=== PATIENT | female | born 1950 | race Caucasian/White ===

== ENCOUNTER 2023-06-02 06:28 | Day surgery (SDC) | payer OTHER, SELFPAY ==
--- NOTE | 2023-06-02 | PATH_ITS ---
[facility] Accession Number: [id number] No. of containers..02 Tissue . 01 Material submitted: . PART A: colon - CECAL POLYP PART B: colon - ASCENDING COLON POLYP . 01 Diagnosis: A- COLON, CECUM, POLYP BIOPSY: - Tubular adenoma --- B- COLON, ASCENDING, POLYP BIOPSY: - Tubular adenoma TXN 06/07/2023 1458 Local . 01 Electronically signed: . Tawfeellyn Finley MD, Pathologist NPI- [id number] . 01 Gross description: . Part A: CECAL POLYP: Received in formalin is 1 fragment(s) of hernandez, soft tissue measuring 0.4 x 0.2 x 0.2 cm submitted entirely in 1 cassette(s) Part B: ASCENDING COLON POLYP: Received in formalin is 1 fragment(s) of hernandez, soft tissue measuring 0.8 x 0.2 x 0.2 cm submitted entirely in 1 cassette(s) /AYSHA 06/03/2023 1859 Local . 01 Pathologist provided ICD-10: R19.5 . 01 CPT . 123646, [id number] Specimen Comment: A courtesy copy of this report has been sent to [phone] Performed at: 01 [facility] [address] [place] [address] [address], [place], [place] [id number] MD Panfilo Colón MD Phone: [phone]
[2023-06-02 07:15] VITALS: BP 137/79; PULSE 78; RESP 16; TEMP 36.2; O2SAT 97; BMI 33.8
[2023-06-02] MEDS: LACTATED RINGERS 1,000 ML 42 ML IV (07:33)
--- NOTE | 2023-06-02 07:36 | PM.HP.1 ---
History of Present Illness History of Present Illness Date Patient Seen: 06/02/23 Time Patient Seen: 07:36 Chief complaint: Dx Colonoscopy w/poss bx Narrative: Radha is here for her colonoscopy positive fit test. See the office note from April for details. [facility] Medical History (Updated 04/27/23 @ 14:36 by Brandy Marquez RN) Hypertension Hypothyroidism Social History household members: friend(s) Smoking Status: Never smoker alcohol intake: never Meds Home Medications and Allergies Home Medications Medication Instructions Recorded Confirmed Type cholecalciferol (vitamin D3) 50 50 mcg PO DAILY 04/27/23 06/02/23 History mcg (2,000 unit) capsule fluticasone propionate 50 1 spray intranasal BID 04/27/23 04/27/23 History mcg/actuation nasal spray,suspension (Allergy Relief (fluticasone)) irbesartan 150 mg tablet 150 mg PO DAILY 04/27/23 06/02/23 History levothyroxine 50 mcg tablet 50 mcg PO DAILY 04/27/23 06/02/23 History metoprolol succinate 50 mg 50 mg PO DAILY 04/27/23 06/02/23 History tablet,extended release 24 hr rosuvastatin 20 mg tablet 20 mg PO DAILY 04/27/23 06/02/23 History sertraline 25 mg tablet 25 mg PO DAILY 04/27/23 06/02/23 History Allergies Allergy/AdvReac Type Severity Reaction Status Date / Time Sulfa (Sulfonamide Allergy Nausea and Verified 06/02/23 07:07 Antibiotics) vomiting Exam Vital Signs (past 8 hours): - 06/02/23 07:15 Temperature 97.2 F L Pulse Rate 78 Respiratory Rate 16 Blood Pressure 137/79 Pulse Oximetry 97 Oxygen Delivery Method Room Air Oxygen Flow Rate 0 Oxygen Delivery Method Room Air Oxygen Flow Rate 0 Const General: No acute distress Orientation: alert and awake Resp Effort & Inspection: normal respiratory effort Assessment & Plan Assessment and plan (1) Positive FIT (fecal immunochemical test): Status: Acute Plan We will proceed with colonoscopy as planned.
--- NOTE | 2023-06-02 08:07 | PM.OP.COLON ---
Operative Date/Time/Diagnoses Date of procedure: 06/02/23 Time of procedure: 08:08 Pre-op diagnosis: Positive fit test Post-op diagnosis: same Procedure & Clinicians Study performed: Colonoscopy Same procedure as scheduled: Yes Surgeon: Pilo Morelos Procedure Notes Procedure in detail: Surgeon: Pilo Morelos MD Anesthesia: Fartun Alexis CRNA Procedure: The patient was brought to the endoscopy suite, placed in left lateral decubitus position. The patient was connected to monitoring devices. A time-out was performed. Sedation was administered. Once the patient was adequately sedated, a digital rectal exam was performed and was normal. The scope was then inserted and advanced to the cecum where the appendiceal orifice was identified and photographed. The terminal ileum was intubated and no abnormalities were seen. The scope was then slowly withdrawn over greater than 6 minutes. The mucosa was thoroughly inspected. There was a 4 mm polyp in the cecum removed with a cold snare. There was a 5 mm polyp in the ascending colon removed with a cold snare. The rest of the colon was normal. The scope was retroflexed in the rectum. No other abnormalities were seen. The scope was straightened and removed. The patient was awakened and brought to recovery. Scope withdrawal time: 9 minutes Sedation time: 17 minutes EBL: 2 mL Findings: 4 mm polyp in the cecum and 4 mm polyp in the ascending colon Post-procedure Disposition: PACU
[2023-06-02 08:12] VITALS: BP 114/57; PULSE 76; RESP 15; TEMP 36.3; O2SAT 95
[2023-06-02 08:16] VITALS: BP 114/64; PULSE 79; RESP 21; O2SAT 98
[2023-06-02 08:21] VITALS: BP 125/62; PULSE 79; RESP 20; O2SAT 97
[2023-06-02 08:25] VITALS: BP 116/69; PULSE 69; RESP 16; O2SAT 99
[2023-06-02 08:31] VITALS: BP 148/78; PULSE 69; RESP 16; TEMP 36.7; O2SAT 99
== END 2023-06-02 08:45 | disposition home or self-care (01) ==
PROVIDERS: PCP Nurse Practitioner; Referring Provider Surgery; Visit Provider Surgery
PROC: 0DJD8ZZ Inspection of Lower Intestinal Tract, Via Natural or Artificial Opening Endoscopic (ICD-10-PCS; CPT 45378; principal; 2023-06-02 07:45)
DX: Z12.11 Encounter for screening for malignant neoplasm of colon (principal); R19.5 Other fecal abnormalities; D12.0 Benign neoplasm of cecum; D12.2 Benign neoplasm of ascending colon
CPT/HCPCS: 45385; J2704